=== PATIENT | male | born 2000 | race Caucasian/White ===

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

== ENCOUNTER 2019-01-01 19:55 | Emergency (ER) | payer SELFPAY ==
--- NOTE | 2019-01-01 20:31 | ED ---
Psychiatric Complaint - HPI Summary HPI Summary: Pt is a 18 y/o M presenting to the ED with a chief psychiatric complaint. He was at his therapist today who wanted him to be further evaluated because hes had suicidal thoughts for the past couple of weeks. He states he has thought about methods but does not have a definitive plan, and he has recently started taking fluoxetine. - History Of Current Complaint Chief Complaint: EDMentalHealth Time Seen by Provider: 01/01/19 20:11 Hx Obtained From: Patient Onset/Duration: Gradual Onset, Lasting Weeks Timing: Constant Severity Initially: Moderate Severity Currently: None Character: Depressed Aggravating Factor(s): Nothing Alleviating Factor(s): Nothing Associated Signs And Symptoms: Positive: Negative Has Suicidal: Reports: Thoughts. Denies: With A Plan - Allergies/Home Medications Allergies/Adverse Reactions: Allergies Allergy/AdvReac Type Severity Reaction Status Date / Time pistachio nut Allergy Anaphylatic Verified 01/01/19 20:01 Shock cashews Allergy Anaphylatic Uncoded 01/01/19 20:01 Shock Home Medications: Home Medications Fluoxetine HCl [Prozac] 20 mg PO DAILY 01/01/19 [History Confirmed 01/01/19] PMH/Surg Hx/FS Hx/Imm Hx Previously Healthy: Yes Endocrine/Hematology History: Denies: Hx Anticoagulant Therapy Cardiovascular History: Denies: Hx Hypertension Infectious Disease History: No Infectious Disease History: Denies: Traveled Outside the [place] in Last 30 Days - Family History Known Family History: Positive: Respiratory Disease - Social History Alcohol Use: None Hx Substance Use: No Substance Use Type: Reports: None Hx Tobacco Use: No Smoking Status (MU): Never Smoked Tobacco Review of Systems Negative: Fever Positive: Depressed All Other Systems Reviewed And Are Negative: Yes Physical Exam - Summary Physical Exam Summary: VITAL SIGNS: Reviewed. GENERAL: Patient is a well-developed and nourished male who is lying comfortable in the stretcher. Patient is not in any acute respiratory distress. HEAD AND FACE: No signs of trauma. No ecchymosis, hematomas or skull depressions. No sinus tenderness. EYES: PERRLA, EOMI x 2, No injected conjunctiva, no nystagmus. EARS: Hearing grossly intact. Ear canals and tympanic membranes are within normal limits. MOUTH: Oropharynx within normal limits. NECK: Supple, trachea is midline, no adenopathy, no JVD, no carotid bruit, no c- spine tenderness, neck with full ROM. CHEST: Symmetric, no tenderness at palpation LUNGS: Clear to auscultation bilaterally. No wheezing or crackles. CVS: Regular rate and rhythm, S1 and S2 present, no murmurs or gallops appreciated. ABDOMEN: Soft, non-tender. No signs of distention. No rebound no guarding, and no masses palpated. Bowel sounds are normal. EXTREMITIES: FROM in all major joints, no edema, no cyanosis or clubbing. NEURO: Alert and oriented x 3. No acute neurological deficits. Speech is normal and follows commands. SKIN: Dry and warm Triage Information Reviewed: Yes Vital Signs On Initial Exam: Initial Vitals Temp Pulse Resp BP Pulse Ox 98.5 F 86 16 119/76 100 01/01/19 20:01 01/01/19 20:01 01/01/19 20:01 01/01/19 20:01 01/01/19 20:01 Vital Signs Reviewed: Yes Diagnostics - Vital Signs Vital Signs Temp Pulse Resp BP Pulse Ox 01/01/19 20:01 98.5 F 86 16 119/76 100 - Laboratory Result Diagrams: 01/01/19 20:32 01/01/19 20:32 Lab Statement: Any lab studies that have been ordered have been reviewed, and results considered in the medical decision making process. Re-Evaluation - Re-Evaluation 1st re-eval Re-Evaluation Time: 20:58 Change: Unchanged Comment: Pt is medically cleared for MHE. Course/Dx - Course Course Of Treatment: Pt is a 18 y/o M sent here by his therapist for suicidal thoughts onset a couple of weeks ago. He states he has thought about methods but does not have a plan, and that he presently has no suicidal thoughts. He also notes he recently started taking fluoxetine. Pt is medically cleared for MHE. Per mental health visual presentation manager, Dr. Ortiz has cleared the patient for discharge. The patient is agreeable with this plan. - Differential Dx/Clinical Impression Provider Diagnosis: Depression - Physician Notifications Discussed Care Of Patient With: Lon Ortiz Time Discussed With Above Provider: 05:27 Instructed by Provider To: Other - Per mental health visual presentation manager, Dr. Ortiz has cleared the patient for discharge. Discharge - Sign-Out/Discharge Documenting (check all that apply): Patient Departure - DC Patient Received Moderate/Deep Sedation with Procedure: No - Discharge Plan Condition: Stable Disposition: HOME Patient Education Materials: Help Prevent Suicide (ED) Referrals: [facility] [Primary Care Provider] - Additional Instructions: Per completion of a mental health evaluation, you are cleared for release and do not require inpatient psychiatric hospitalization at this time. Please go to nearest emergency room or call 911 if safety concerns arise or condition worsens. Contact [facility] for appointment and assistance with coordinating outpatient services: 24 hour crisis line [phone] Hours: Tuesday: All services 8:30 am 5:00 pm; Limited services 5:00 7:00 pm Tuesday: All services 8:30 am 5:00 pm; Limited services 5:00 7:00 pm Tuesday: All services 10:00 am 5:00 pm; Limited services 5:00 7:00 pm : All services 8:30 am 5:00 pm; Limited services 5:00 7:00 pm Tuesday: 8:30 am 5:00 pm Tuesday: 10:00 am 4:00 pm Tuesday: Closed Important Phone Numbers: [facility]........... [phone] Suicide Prevention and Crisis Services........................ [phone] National Suicide Prevention Lifeline............................ 697-292-EACW (6038) [facility]....................... [phone] Alcoholics Anonymous............................................... [phone] [facility].............. [phone] [facility] Police.............................................. - Billing Disposition and Condition Condition: STABLE Disposition: Home - Attestation Statements Document Initiated by Javier: Yes Documenting Scribe: Estrella Carter Provider For Whom Javier is Documenting (Include Credential): Michele Orozco MD. Scribe Attestation: Estrella Dover, scribed for Michele Orozco MD. on 01/02/19 at 0620. Scribe Documentation Reviewed: Yes Provider Attestation: The documentation as recorded by the javier, Estrella Carter accurately reflects the service I personally performed and the decisions made by Gilbert watson MD. Status of Scribe Document: Viewed
[2019-01-01 20:40] LABS: ABS Basophils 0 10^3/ul (0-0.2); ABS Eosinophils 0.1 10^3/ul (0-0.6); ABS Lymphocytes 1.3 10^3/ul (1.0-4.8); ABS Monocytes 0.5 10^3/ul (0-0.8); ABS Neutrophils 3.2 10^3/ul (1.5-7.7); ABS Nucleated RBC 0 10^3/ul; Eosinophil % 1.3 %; Hematocrit 44 % (36-46); Hemoglobin 15.4 g/dL (14.0-18.0); Lymphocyte % 26.1 %; Mean Corpuscular HGB Conc 35 g/dL (31-36); Mean Corpuscular Hemoglobin 30 pg (27-31); Mean Corpuscular Volume 87 fL (80-94); Mean Platelet Volume 7.8 fL (7.4-10.4); Nucleated Red Blood Cells % 0; Platelet Count 230 10^3/uL (150-450); Red Blood Count 5.11 10^6 /uL (4.18-5.48); Red Cell Distribution Width 13 % (10.5-15); White Blood Count 5.1 10^3/uL (3.5-10.8)
[2019-01-01 20:41] LABS: Urine Appearance Clear; Urine Bilirubin Negative (Negative); Urine Blood Negative (Negative); Urine Color Colorless; Urine Glucose Negative (Negative); Urine Ketones Negative (Negative); Urine Nitrite Negative (Negative); Urine Protein Negative (Negative); Urine Specific Gravity 1.002 (1.010-1.030); Urine Urobilinogen Negative (Negative)
[2019-01-01 20:59] LABS: Barbiturates Urine Screen None Detected (None Detect); Benzodiazepine Urine Screen None Detected (None Detect); Urine Cannabinoids Screen None Detected (None Detect)
[2019-01-01 21:00] LABS: ALT 26 U/L (7-52); AST 25 U/L (13-39); Albumin 4.7 g/dL (3.2-5.2); Alkaline Phosphatase 71 U/L (34-104); Anion Gap 5 mmol/L (2-11); BUN/Creatinine Ratio 14.9 (8-20); Blood Urea Nitrogen 13 mg/dL (6-24); CO2 Carbon Dioxide 31 mmol/L (22-32); Calcium 9.7 mg/dL (8.6-10.3); Chloride 105 mmol/L (101-111); EGFR African American 136.8 (>60); Globulin 2.3 g/dL (2-4); Glucose 106 mg/dL (70-100); Potassium 4.2 mmol/L (3.5-5.0); Sodium 141 mmol/L (135-145)
[2019-01-01 21:10] LABS: Acetaminophen < 15 mcg/mL; Alcohol < 10 mg/dL (<10); Salicylate < 2.50 mg/dL (<30)
[2019-01-01 21:25] LABS: TSH (Thyroid Stimulating Horm) 1.09 mcIU/mL (0.34-5.60)
[2019-01-02 06:13] VITALS: BP 120/72
== END 2019-01-02 06:15 | disposition home or self-care (01) ==
LOC: ED 19:55
DX: F32.9 Major depressive disorder, single episode, unspecified (principal)
CPT/HCPCS: 36415; 80053; 80307; 80320; 80329; 81003; 84443; 85025; 99285; G0480